=== PATIENT | male | born 1955 | race Caucasian/White ===

== ENCOUNTER 2024-02-15 08:33 | Emergency (ER) | payer MEDICARE, BC ==
[2024-02-15 08:40] VITALS: BP 171/82; PULSE 59; RESP 20; TEMP 98
--- NOTE | 2024-02-15 09:01 | ED ---
ENT HPI - General Chief complaint: ENT Stated complaint: Nosebleed Time Seen by Provider: 02/15/24 08:41 Source: patient, RN notes reviewed Mode of arrival: ambulatory Limitations: no limitations - History of Present Illness Initial comments: This is a 68-year-old male who presents to the emergency department for a nosebleed. States that over the last 3 days he has had on and off nosebleeds from the left nostril. Denies any pain associated with this. Also denies any injuries. Not taking any blood thinners. He saw his primary care provider yesterday and states that a prescription for a cream was sent to his pharmacy and he was advised apply this in the nostril. However, states that the prescription did not go through and he has been unable to pick this up. Last night the nose started bleeding again fairly profusely. At this time in the ER there is no active bleeding. MD complaint: epistaxis - Related Data Allergies Allergy/AdvReac Type Severity Reaction Status Date / Time No Known Allergies Allergy Verified 02/15/24 08:40 Review of Systems ROS Statement: Those systems with pertinent positive or pertinent negative responses have been documented in the HPI. ROS Other: All systems not noted in ROS Statement are negative. Past Medical History Past Medical History: Hypertension History of Any Multi-Drug Resistant Organisms: None Reported Past Surgical History: No Surgical Hx Reported Past Psychological History: No Psychological Hx Reported Smoking Status: Never smoker Past Alcohol Use History: None Reported Past Drug Use History: None Reported General Exam Limitations: no limitations General appearance: alert, in no apparent distress Head exam: Present: atraumatic, normocephalic, normal inspection ENT exam: Present: other (Fresh blood in the left naris with evidence of recent active bleeding. No septal hematoma.) Respiratory exam: Present: normal lung sounds bilaterally. Absent: respiratory distress, wheezes, rales, rhonchi, stridor Cardiovascular Exam: Present: regular rate, normal rhythm, normal heart sounds. Absent: systolic murmur, diastolic murmur, rubs, gallop, clicks Neurological exam: Present: alert, oriented X3, CN II-XII intact Psychiatric exam: Present: normal affect, normal mood Skin exam: Present: warm, dry, intact, normal color. Absent: rash Course Vital Signs 02/15/24 02/15/24 08:38 09:42 Temperature 98 F 98 F Pulse Rate 59 L 59 L Respiratory 20 20 Rate Blood Pressure 171/82 171/82 O2 Sat by Pulse 99 99 Oximetry Medical Decision Making - Medical Decision Making This is a 68-year-old male who presents to the emergency department for a nosebleed. Was pt. sent in by a medical professional or institution? @ -No Did you speak to anyone other than the patient for history? @ -No Did you review nursing and triage notes? @ -Yes, and I agree, it is accurate with regards to the patient's symptoms. Were old charts reviewed? @ -No Differential Diagnosis? @ -Differential Epistaxis: Coagulopathy, injury, allergic rhinitis, tumor, this is not meant to be an all- inclusive list. EKG interpreted by me (3pts min.)? @ -Not obtained X-rays interpreted by me (1pt min.)? @ -Not obtained CT interpreted by me (1pt min.)? @ -Not obtained U/S interpreted by me (1pt. min.)? @ -Not obtained What testing was considered but not performed? (CT, X-rays, U/S, labs)? Why? @ -None What meds were considered but not given? Why? @ -None Did you discuss the management of the patient with other professionals? @ -No Did you reconcile home meds? @ -No Was smoking cessation discussed for >3mins.? @ -No Was critical care preformed (if so, how long)? @ -No Were there social determinants of health that impacted care today? How? (Homelessness, low income, unemployed, alcoholism, drug addiction, transportation, low edu. Level, literacy, decrease access to med. care, detention, rehab)? @ -No Was there de-escalation of care discussed even if they declined? (Discuss DNR or withdrawal of care, Hospice)? @ -No What co-morbidities impacted this encounter? (DM, HTN, Smoking, COPD, CAD, Cancer, CVA, Hep., AIDS, mental health diagnosis, sleep apnea, morbid obesity)? @ -None Was patient admitted / discharged? @ -Discharged. The patient had fresh blood in the left naris on exam without active bleeding. Oxymetazoline nasal spray was administered and he continued to have no active bleeding. Patient was sent home with the oxymetazoline nasal spray and nasal clamps and advised to apply the spray followed by clamping the nose for 15 to 20 minutes if the bleeding returns. Also advised using saline nasal spray or Vaseline on a Q-tip several times daily to moisten the nasal passages to reduce the risk of recurrent bleeding. Undiagnosed new problem with uncertain prognosis? @ -None Drug Therapy requiring intensive monitoring for toxicity (Heparin, Nitro, Insulin, Cardizem)? @ -None Were any procedures done? @ -None Diagnosis/symptom? @ -Epistaxis Acute, or Chronic, or Acute on Chronic? @ -Acute Uncomplicated (without systemic symptoms) or Complicated (systemic symptoms)? @ -Uncomplicated Side effects of treatment? @ -None Exacerbation, Progression, or Severe Exacerbation] @ -Not applicable Poses a threat to life or bodily function? @ -No Return precautions reviewed in depth, the patient is instructed to return to the emergency department with any new, worsening, or concerning symptoms. Patient verbalized understanding. This case was discussed in detail with the attending ED physician, Dr. Mohan. Presentation, findings, and treatment plan discussed in detail as well. Disposition Clinical Impression: Epistaxis Disposition: HOME SELF-CARE Instructions (If sedation given, give patient instructions): Nosebleed (ED) Additional Instructions: Return to the emergency department with any new, worsening, or concerning symptoms. If you develop another nosebleed, apply 2 sprays of the nasal spray provided and then clamp the nose for 15 to 20 minutes. You can repeat this process if the nosebleed does not improve. Use saline nasal spray, saline gel, or Vaseline with a Q-tip in the nostril several times daily to moisten the nasal passages and reduce the risk of additional bleeds. Follow up with your primary care provider in 1-2 days. Is patient prescribed a controlled substance at d/c from ED?: No Referrals: Ekta Piper MD [Primary Care Provider] - 1-2 days Time of Disposition: 09:28
[2024-02-15] MEDS: OXYMETAZOLINE 0.05% NASL SPRAY 1 SPRAY BOTTLE NASAL STA (09:04)
== END 2024-02-15 09:44 | disposition home or self-care (01) ==
LOC: EC 08:33
DX: R04.0 Epistaxis (principal)
CPT/HCPCS: 99283

== ENCOUNTER → 2024-07-02 | Outpatient (CLI) | payer MEDICARE, BC ==
[2024-07-02 16:04] LABS: African American GFR (CKD) >90 (>60 ml/min/1.73 sqM); Blood Urea Nitrogen 20 mg/dL (9-20); Non-African American GFR(CKD) 80 (>60 ml/min/1.73 sqM)
--- NOTE | 2024-07-03 20:55 | CT ---
EXAMINATION TYPE: CT urogram wo/w con DATE OF EXAM: 07/02/2024 COMPARISON: None INDICATION: Gross hematuria. DLP: 4719.7 mGycm, Automated exposure control for dose reduction was used. CONTRAST: 100ml mL of Isovue 300. Study performed TECHNIQUE: Axial images were obtained from above the diaphragm to the pubic rami in the axial plane a t 5 mm thick sections. Reconstructed images are reviewed on the computer in the coronal plane. FINDINGS: Urography: Kidneys appears symmetrical. On noncontrast imaging no suspicious renal or ureteral stones evident. Postcontrast and delayed images were obtained through the kidneys. No hydronephrosis or hyd roureter is evident. Urinary bladder as visualized appears unremarkable. Ureters follow a normal katelyn patrica course and contour to the urinary bladder. 3-D reconstructed images are performed through the renal collecting systems. Renal calyces infundibul a and renal pelves appear normal. Ureters appear normal to the urinary bladder. Urinary bladder has l imited evaluation. Prostate is prominent with asymmetric impression along the inferior urinary bladde r. Prostate hypertrophy is present. Evaluate for neoplasm or direct invasion. Limited CT sections are obtained the lung bases. The lung bases are clear. CT ABDOMEN: Liver: Normal Spleen: Normal Pancreas: Normal Adrenal glands: The adrenal glands are normal. Gallbladder: Normal Kidneys: Discussed above. Aorta: Normal Inferior vena cava: Normal. CT PELVIS: Loops of bowel within the abdomen and pelvis are normal. The study is without oral contrast limit ing bowel evaluation Appendix: Not identified. No dilated tubular structure or inflammatory change is evident. Urinary bladder: Discussed above Genitourinary structures: Prostate is enlarged and has some inferior impression on the urinary bladde r. Osseous structures: No suspicious lytic or sclerotic lesions. IMPRESSION: 1. Prostate hypertrophy with asymmetric impression on the inferior urinary bladder. Underlying neopl asm should be considered. Additional workup is recommended. 2. Bilateral kidneys and the collecting system to the urinary bladder appear within normal limits [facility], , 07/03/2024 8:53 PM
== END | disposition home or self-care (01) ==
LOC: RADCTMAIN 15:01
PROVIDERS: ATTEND Urology
DX: N40.0 Benign prostatic hyperplasia without lower urinary tract symptoms (principal); N32.89 Other specified disorders of bladder; R31.0 Gross hematuria
CPT/HCPCS: 82565; 84520; 74178; 36415; 74400; Q9967